=== PATIENT | female | born 1980 | race Caucasian/White ===

== ENCOUNTER 2023-06-21 15:16 | Emergency (ER) | payer MEDICARE, SELFPAY ==
[2023-06-21 15:35] VITALS: BP 102/76; PULSE 94; RESP 16; TEMP 37.2; O2SAT 99
--- NOTE | 2023-06-21 15:45 | ED.FEMALEGU ---
HPI - Female Genitourinary General Chief complaint: Urogenital-Female Stated complaint: UTI Source: patient and RN notes reviewed Mode of arrival: ambulatory Limitations: no limitations History of Present Illness HPI Narrative: 43-year-old female presented for multiple complaints. Reports pain to right lower back radiating to right anterior hip for over one month. Pain is intermittent, occasionally radiates to the hip and foot. Denies injury. Not taking anything for pain. Also Reports yellow vaginal discharge with foul odor, vaginal itching, and sensation she needs to force the urine to come out for over one week. Endorses possible exposure to trich. Denies vaginal lesions or redness. Denies associated abdominal pain, dysuria, frequency, urgency, hematuria or flank pain, n/v/d/f/c. Reports a miscarriage 03/2023. Related Data Allergies Allergy/AdvReac Type Severity Reaction Status Date / Time acetaminophen Allergy Rash Verified 06/21/23 15:41 [From Darvocet-N] morphine Allergy Anaphylaxis Verified 06/21/23 15:41 propoxyphene Allergy Rash Verified 06/21/23 15:41 [From Darvocet-N] Review of Systems Review of Systems: CONSTITUTIONAL: Denies body aches, fever, chills, or sweats. CARDIOVASCULAR: Denies chest pain, palpitations, or edema. RESPIRATORY: Denies cough or dyspnea. GASTROINTESTINAL: Denies abdominal pain, nausea, vomiting, or diarrhea. GENITOURINARY: reports vaginal discharge and itching denies dysuria, frequency, urgency, hematuria, flank pain SKIN: Denies rash, itching, or wounds. MUSCULOSKELETAL: reports right lower back pain denies myalgia. [facility] Past Medical History Medical History (Updated 06/21/23 @ 17:22 by Chelsea Valentin APRN) Asthma Social History Social History (Updated 06/21/23 @ 17:22 by Chelsea Valentin APRN) Smoking status: Current every day smoker Tobacco type: cigarettes Comments At time of signature, I have reviewed and agree with nursing past medical, surgical, social and family history unless otherwise noted. Please see nursing chart for further information. There is no relevant family history pertinent to the presenting complaint Exam Narrative: GENERAL: Well-appearing and in no acute distress. ENT: Mucous membranes pink and moist. NECK: Normal AROM. Supple. CHEST: No respiratory distress. Clear to auscultation. HEART: Regular rate and rhythm. ABDOMEN: Soft, nontender, nondistended, normal active bowel sounds. No CVA tenderness MUSCULOSKELETAL: No vpt. Tender with palpation to right lower back, lateral hip and anterior hip. Ambulates with steady gait. SKIN: Warm, dry, no rash. NEURO: No focal deficits. Alert and oriented x3. Gait steady. PSYCH: Normal affect. Course Course Emergency Course: Patient is aware of diagnosis, understands and agrees to treatment plan. Anticipatory guidance given. Patient agrees to follow-up as directed and is aware of reasons to seek care at the emergency department. Portions of this record may have been created with voice recognition software Level of Care: Express Care Visit Vital Signs Vital signs: Vital Signs Temperature 98.9 F 06/21/23 15:35 Pulse Rate 94 06/21/23 15:35 Respiratory Rate 16 06/21/23 15:35 Blood Pressure 102/76 06/21/23 15:35 Pulse Oximetry 99 06/21/23 15:35 Oxygen Delivery Room Air 06/21/23 15:35 Temperature 98.9 F 06/21/23 15:35 Pulse Rate 94 06/21/23 15:35 Respiratory Rate 16 06/21/23 15:35 Blood Pressure 102/76 06/21/23 15:35 Pulse Oximetry 99 06/21/23 15:35 Oxygen Delivery Room Air 06/21/23 15:35 Reviewed MDM - Female Genitourinary MDM Narrative Medical decision making narrative: Patient presenting with concern for STD/UTI. Urine specimen collected for GC, chlamydia, trich. Will send urine for culture. Neg preg. Informed Pt will be contacted w/ results when they become available if they are positive. Discussed with patient th
[2023-06-21 20:30] LABS: Trichomonas Vag PCR DETECTED (NOT DETECTE)
[2023-06-21 21:08] LABS: Chlamydia trachomatis NOT DETECTED (NOT DETECTE); Neisseria gonorrhoeae PCR NOT DETECTED (NOT DETECTE)
== END 2023-06-21 16:44 | disposition home or self-care (01) ==
PROVIDERS: Emergency Provider Nurse Practitioner Family
DX: A59.9 Trichomoniasis, unspecified (principal); Z11.3 Encounter for screening for infections with a predominantly sexual mode of transmission; M54.16 Radiculopathy, lumbar region; R39.198 Other difficulties with micturition; J45.909 Unspecified asthma, uncomplicated; F17.210 Nicotine dependence, cigarettes, uncomplicated
CPT/HCPCS: 87484; 81003; 81025; 87086; 87088; 87491; 87591; 87661; 99204; G0463

== ENCOUNTER 2023-08-02 17:53 | Emergency (ER) | payer OTHER, MEDICARE, SELFPAY ==
--- NOTE | ~2023-08-02 | CT_ITS ---
EXAMINATION: CT facial bones wo con DATE: 08/02/2023 20:52 INDICATION: head injury . TECHNIQUE: Computed tomography (CT) of the facial bones and maxillofacial region was performed withou t intravenous contrast. Automated exposure control and iterative reconstruction technique were employ ed. The dose-length product was 349.00 mGy-cm. COMPARISON: None. FINDINGS: Soft Tissues: Soft tissue swelling over the nose. Facial bones: Mildly displaced anterior nasal bone fractures. The osseous septum is intact. No septa l hematoma. No other fracture detected. No lytic or blastic process. Eyes: The globes are intact. The soft tissue planes of the orbits are maintained. Paranasal Sinuses: Right inferior maxillary retention cyst/polyp. Bilateral maxillary, left frontal, and ethmoid mucosal thickening. The remaining aerated spaces are clear. Foreign Bodies: No radiopaque foreign bodies. Other Findings: Dental caries and periodontal disease. IMPRESSION: Mildly displaced anterior nasal bone fractures. Dental caries and periodontal disease. Reviewed, dictated and finalized at location K. ER DISTILLERY
--- NOTE | ~2023-08-02 | CT_ITS ---
EXAMINATION: CT brain wo con DATE: 08/02/2023 20:52 INDICATION: head injury . TECHNIQUE: Computed tomography (CT) of the head was performed without intravenous contrast. The mA wa s adjusted according to patient size. Iterative reconstruction technique was employed. The dose-lengt h product was 605.33 mGy-cm. COMPARISON: None. FINDINGS: No acute intracranial hemorrhage or extra-axial fluid collection. No hydrocephalus, mass, or herniation. No acute ischemic infarct. Unremarkable dural venous sinus attenuation. No acute skull abnormality. Mildly displaced nasal bone fractures. Retention cyst or polyp in the right inferior maxillary sinus, mucosal thickening in the maxillary an d ethmoid sinuses, the remaining aerated spaces are clear. IMPRESSION: No acute intracranial process. Mildly displaced nasal bone fractures. Reviewed, dictated and finalized at location K. HROOM FOOD SERVICE SUPERVISOR
[2023-08-02 18:38] VITALS: BP 130/82; PULSE 72; RESP 12; TEMP 36.6; O2SAT 96
--- NOTE | 2023-08-02 20:29 | ED.FALL ---
HPI - Fall General Chief Complaint: Fall Stated Complaint: fall/facial injury Time Seen by Provider: 08/02/23 20:20 Source: patient Mode of arrival: ambulatory Limitations: no limitations History of Present Illness HPI Narrative: This is a 43 year old female that presents to the ER for a fall today with head injury. Reports she slipped and fell at the grocery store. Reports hitting her face on the floor. She did not lose consciousness. Reports a laceration to the nose and nasal pain. Denies vision changes, vomiting, numbness or weakness. Related Data Allergies Allergy/AdvReac Type Severity Reaction Status Date / Time morphine Allergy Anaphylaxis Verified 06/21/23 15:41 propoxyphene Allergy Rash Verified 06/21/23 15:41 [From RadhaJose] Review of Systems Review of Systems: CONSTITUTIONAL: Denies fever EYES: Denies visual changes GASTROINTESTINAL: Denies vomiting MUSCULOSKELETAL: Denies back pain, joint pain, or myalgia. NEUROLOGIC: Denies numbness, or weakness. All systems reviewed & are unremarkable except as noted in HPI and below PMFSH Past Medical History Medical History (Updated 08/02/23 @ 21:54 by Rebeca Mi PA-C) Asthma Social History Social History (Updated 06/21/23 @ 17:22 by Chelsea Valentin, CUSTOMER ORDER CLERK) Smoking status: Current every day smoker Tobacco type: cigarettes Exam Narrative: GENERAL: Well-appearing, well-nourished, and in no acute distress. HEAD: Normocephalic. Small (1cm) superficial laceration to the nasal bridge EYES: PERRLA and EOMI. ENT: Nares clear, no rhinorrhea or epistaxis. Mucous membranes moist. Oropharynx without tonsillar hypertrophy exudate or other lesions. Bilateral TMs pearly watters non-bulging NECK: Supple. No adenopathy or masses. No midline spinal tenderness CHEST: Clear to auscultation. No respiratory distress. No wheezes rales or rhonchi HEART: Regular rate and rhythm. No murmur heard. Normal peripheral pulses. EXTREMITIES: Normal range of motion. No edema or obvious deformity. SKIN: Warm, dry, no rash. NEURO: No focal deficits. Alert and oriented x3. Cranial nerves 2-12 grossly intact PSYCH: Normal mood and affect Course Course Emergency Course: Patient updated on workup and agrees with plan of care Vital Signs Vital signs: Vital Signs Temperature 97.8 F 08/02/23 18:38 Pulse Rate 72 08/02/23 18:38 Respiratory Rate 12 08/02/23 18:38 Blood Pressure 130/82 08/02/23 18:38 Pulse Oximetry 96 08/02/23 18:38 Oxygen Delivery Room Air 08/02/23 18:38 Temperature 97.8 F 08/02/23 18:38 Pulse Rate 72 08/02/23 18:38 Respiratory Rate 12 08/02/23 18:38 Blood Pressure 130/82 08/02/23 18:38 Pulse Oximetry 96 08/02/23 18:38 Oxygen Delivery Room Air 08/02/23 18:38 Procedures Laceration Laceration 1: Date: 08/02/23 Time: 22:00 Site: face Size (cm): 1 Description: linear Depth: simple, single layer Local Anesthetic: none Pre-repair: irrigated ====== Skin Level ====== Skin layer closed with: dermabond ====== Subcutaneous Layer ====== ====== Muscle Layer ====== ====== Tendon Layer ====== MDM - Fall MDM Narrative Medical decision making narrative: Patient presents to the emergency department after a fall today with head injury. Patient is neurologically intact. She did not lose consciousness. Denies visual changes, vomiting or numbness. CT brain without acute findings. Facial bones shows mildly displaced nasal bone fractures. Her wound was cleansed and closed with Dermabond. She was educated on wound care. Will be given follow-up with ENT. She was given warnings to return to the ER Differential Diagnosis Differential diagnosis: Likely concussion without loss of consciousness and other (intracranial hemorrhage, nasal bone fracture) Imaging Data Radiologist's impression: ITS Impressions Head CT 08/02/23 21:12 HONEYI
[2023-08-02] MEDS: TETANUS,DIPHTHERIA,AC PERTUSSIS ADULT (0.5 ML) BOOSTRIX IM (20:34)
--- NOTE | 2023-08-02 20:39 | PC.NURSE ---
pt refused test
[2023-08-02] MEDS: ACETAMINOPHEN 500 MG TABLET 1000 MG PO (21:34)
== END 2023-08-02 22:00 | disposition home or self-care (01) ==
PROVIDERS: Emergency Provider Physician Assistant
DX: S02.2XXA Fracture of nasal bones, initial encounter for closed fracture (principal); S01.21XA Laceration without foreign body of nose, initial encounter; Z23 Encounter for immunization; F17.210 Nicotine dependence, cigarettes, uncomplicated; W01.0XXA Fall on same level from slipping, tripping and stumbling without subsequent striking against object, initial encounter
CPT/HCPCS: 12011; 70450; 70486; 90471; 90715; 99284; A9270

== ENCOUNTER 2023-08-08 00:41 | Day surgery (SDC) | payer MEDICARE, SELFPAY ==
[2023-08-07 15:57] VITALS: BMI 37.5
--- NOTE | 2023-08-07 16:03 | PC.NURSE ---
Report to the Outpatient Waiting Room, entrance under the green pavilion located off [facility], at time 0930 on date 08/08/23. Planned Procedure Time: 1130. Time changes happen often and if your time is changed the preop area will call you the afternoon before. - You and your visitor will be asked to self-screen and do not enter if you have any COVID symptoms. - A mask is optional within the hospital at this time. Patients may have clear liquids (water, carbonated beverages, clear teas, apple juice) until 3 hours prior to surgery with a maximum of 20 ounces. - No food from midnight until time of surgery Take the following medications with a SIP of water the morning of surgery: INHALERS, TYLENOL OR PAIN PILL IF NEEDED DO NOT STOP ANY OF YOUR OTHER PRESCRIPTION MEDICATIONS PRIOR TO SURGERY ?EXCEPT THE FOLLOWING Medications to discontinue per physician: N/A Date to take last dose: N/A Please no make-up, nail vietnamese, hairspray, perfume, deodorant, or body powder the day of surgery. No jewelry (including any body piercings) or valuables the day of surgery, leave them at home. Please take a shower or bath the night before, or the morning of, surgery with an antibacterial soap. Wear comfortable, loose fitting clothing. - Jewelry must be removed prior to entering the operating room. Rings and piercings that are not removed may be cut off. - The hospital will not accept responsibility for valuables. - Please leave all valuables, including medications, at home the day of surgery. If you are going home after surgery, a licensed peg driver must drive you home. - NO public transportation without another adult if you receive anesthesia. - We recommend that an adult stay with you for 24 hours following discharge. - We also recommend that you do not drive, make important decision, drink alcoholic beverages, or take any drugs that were not prescribed by your health care provider for at least 24 hours after your discharge time. Follow any additional instructions given to you from your surgeon. If you or anyone in your household have experienced Covid symptoms in the past week, please notify your surgeon or the nurse liaison at the phone number below for possible testing. Telephone instructions given to PT - RUFINO CERVANTES and asked if any additional questions and then verbalized understanding. Patient advised to call surgeon office or pre surgery nurse liaison [phone] if any additional questions.
[2023-08-08] VITALS (9 sets, daily range): BP systolic 104–129; BP diastolic 60–96; PULSE 57–112; RESP 12–24; TEMP 36.6–36.8; O2SAT 94–100; BMI 37.2
--- NOTE | 2023-08-08 07:18 | WPDHPUPDATE1 ---
History and Physical Update Update Date/Time: 08/08/23 07:18 History and Physical has been reviewed, including an updated exam of the patient. There are NO changes in the patient's condition. Risks, benefits, and alternatives have been discussed and questions answered. Patient agrees to proceed with procedure.
--- NOTE | 2023-08-08 09:37 | ECG_ITS ---
Measurements Intervals [place] Rate: 67 P: 41 TN: 173 QRS: 39 QRSD: 100 T: 30 QT: 379 QTc: 400 Interpretive Statements SINUS RHYTHM INCOMPLETE RIGHT BUNDLE BRANCH BLOCK BORDERLINE ECG NO PREVIOUS ECG AVAILABLE FOR COMPARISON Electronically Signed On 08-08-2023 10:07:15 MILL BEAM FITTER by Hieu Finch D.O.
[2023-08-08] MEDS: ACETAMINOPHEN 500 MG TABLET 1000 MG PO (10:09)
--- NOTE | 2023-08-08 10:48 | WPDANESEPPF ---
Anes - Initial Pre Proc Eval Procedure: Operation Date: 08/08/23 11:30 Proposed Procedures p Closed Reduction Nasal Septal Fracture, Closed Reduction Nasal Bone Fracture - Bran Danielle MD Date/Time: 08/08/23 10:48 Surgeon: Bran Danielle MD Pre Op Diagnosis: nasal fracture Patient Data Age: 43 Gender: F Height: 1.56 m Weight: 90.8 kg Last Vital Signs Temp 36.6 C 08/08/23 10:27 Pulse 81 08/08/23 10:27 Resp 16 08/08/23 10:27 BP 127/77 08/08/23 10:27 Pulse Ox 100 08/08/23 10:27 O2 Del Method Room Air 08/08/23 10:27 Allergies Allergy/AdvReac Type Severity Reaction Status Date / Time morphine Allergy Anaphylaxis Verified 08/08/23 10:17 propoxyphene Allergy Rash Verified 08/08/23 10:17 [facility] adhesive tape Allergy Severe Rash Uncoded 08/07/23 15:55 Home Medications Medication Instructions Recorded Confirmed Type cyclobenzaprine 10 mg tablet 10 mg PO TID PRN muscle spasm #10 06/21/23 08/08/23 Rx tabs ibuprofen 800 mg tablet 800 mg PO TID PRN pain #20 tabs 06/21/23 08/08/23 Rx hydrocodone 5 mg-acetaminophen 325 1 tablet PO Q8H PRN pain #20 tabs 08/02/23 08/08/23 Rx mg tablet acetaminophen 325 mg capsule 325 mg PO Q6H PRN Pain 08/07/23 08/08/23 History (Tylenol) albuterol sulfate 90 mcg/actuation 1 puff inhalation Q4H PRN 08/07/23 08/08/23 History aerosol inhaler (Ventolin HFA) Shortness Of Breath budesonide 160 mcg-glycopyr 9 2 inh inhalation BID 08/07/23 08/08/23 History mcg-formot 4.8 mcg/actuation HFA inhaler (Breztri Aerosphere) Patient hx anesthesia problems: none Family hx anesthesia problems: none Results Review: All pre-operative results and documents have been reviewed as part of the pre-operative evaluation. [facility] Past Medical History Medical History (Updated 08/08/23 @ 10:49 by Bill Gotti DO) Anxiety Asthma Cardiomyopathy 2007 post Depression Family History Family History (Updated 08/07/23 @ 14:42 by Mariela Carbajal CMA) Father Cancer Mother Alcoholism Asthma Cancer Depression Sibling Depression Grandparent Alcoholism Cancer Heart disease Cerebrovascular accident Social History Social History (Updated 08/07/23 @ 14:44 by Mariela Carbajal CMA) Smoking packs per day: 1 Smoking cigarettes per day: 20.0 Years smoked: 32 Smoking pack-years: 32.00 Smoking status: Current every day smoker Tobacco type: cigarettes Alcohol intake: current Alcohol use details: VERY RARE Substance use: current Substance use type: marijuana Do You Feel Safe in your Home?: Yes Lack of Transportation: No Lack of Food: Never True Current Housing: I Have Housing Concerned About Future Housing: No Difficulty Paying Gas/Electric Bills: No Difficulty Paying for Meds: No Currently Unemployed: No Education: Associate Degree Difficulty w/ Childcare or Family Care: No Living arrangements: with family Additional living arrangements comments: BROTHER Spiritual care concerns: No Anes - Eval Final PreProcedure Day of Procedure 08/08/23 10:48 Patient weight: obese Heart: regular rate and rhythm Lungs: clear to auscultation Airway: Mallampati scale class II and special considerations poor dentition Neurological: alert and oriented Last oral intake: >/= 8 hours ASA classification: III Emergent: no Anesthetic plan: proceed Anesthesia type and monitoring: general ETT and standard monitoring Results Review: All pre-operative results and documents have been reviewed as part of the pre-operative evaluation. Informed Consent: The patient's anesthetic plan and its attendant risks and benefits were discussed with the patient/family/POA. Questions were solicited and answers provided to the satisfaction of the patient/family/POA.
[2023-08-08] MEDS: OXYMETAZOLINE HCL 0.05% NAS 15 ML BTL (*BKC) 1 SPRAY NASAL (11:28)
[2023-08-08] MEDS: LACTATED RINGERS 1,000 ML 30 ML IV CONT ×2 (12:00→14:10)
[2023-08-08] MEDS: fentaNYL CITRATE INJ (*CRX) 100 MCG/2 ML VIAL 25 MCG IV PUSH ×6 (12:53→13:27)
--- NOTE | 2023-08-08 13:05 | W.PM.PROC2 ---
Procedure Note - Detailed Date of Procedure 08/08/23 Pre-op Diagnosis nasal fracture Post-op Diagnosis Same Procedure Performed Closed reduction nasal septum closed reduction nasal bone fracture Surgeon Bran Danielle MD Anesthesia General Indications see above Findings right septal deviation only moderately corrected with outfracture with the infracture on the nasal bones right was actually concave and the left was convex given the appearance of kind of rightward bend superiorly. I fractured the right outward on the left in were given a much straighter appearance this was confirmed by 5 others in the operating room as well. Description of Procedure Patient identified consent verified preop. Patient brought to the operating room. Time-out performed. General anesthesia induced endotracheal tube secured airway. Patient prepped draped position procedure confirmed 2nd time-out performed. Afrin-soaked pledgets placed bilaterally let sit for 5 minutes then removed. Septum fracture to the left not able to get a complete fracture this is likely longstanding septal deviation. Right nasal bone outfractured left infractured. Much better cosmetic appearance. Gelfoam placed below the right nasal bone. About 15 cc blood loss intra op. With the patient was woken and postop the patient coughed and sneezed and had about another 5 cc of blood loss as well. Brown tape was placed followed by an Aquaplast splint followed by more brown tape. Patient tolerated the procedure well no complications. Care the patient given Anesthesiology. I all dictated portions the procedure. Estimated Blood Loss 15 Drains No Packing Yes ( Gelfoam) Pathology None sent Complications No immediate complications Condition Stable Disposition PACU [facility] Billing Surgery - Charge Forward: Surgery Billing
[2023-08-08] MEDS: HYDROmorphone HCL INJ (*CRX) 1 MG/ML SYR 0.5 MG IV PUSH (13:41)
== END 2023-08-08 14:38 | disposition home or self-care (01) ==
PROVIDERS: PCP Nurse Practitioner Family; Visit Provider Otolaryngology
PROC: 0NSBXZZ Reposition Nasal Bone, External Approach (ICD-10-PCS; CPT 21315; principal; 2023-08-08 11:30)
DX: S02.2XXA Fracture of nasal bones, initial encounter for closed fracture (principal); W19.XXXA Unspecified fall, initial encounter; J45.909 Unspecified asthma, uncomplicated; Z79.51 Long term (current) use of inhaled steroids; F12.90 Cannabis use, unspecified, uncomplicated; F17.210 Nicotine dependence, cigarettes, uncomplicated
CPT/HCPCS: 21320; 93005; A9270; J0330; J1100; J1170; J2250; J2405; J2704; J3010; J7120